=== PATIENT | female | born 1995 | race Caucasian/White ===

== ENCOUNTER 2017-08-08 20:26 | Emergency (ER) | payer OTHER ==
[2017-08-08] MEDS ORDERED: Octyl 2-Cyanoacrylate 1 Tube TOP ONE (20:57)
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
[2017-08-08] MEDS ORDERED: Diphtheria,Pertussis(Acell),Tetanus Vaccine 0.5 ML Syringe IM ONE (21:35)
[2017-08-08] MEDS ORDERED: Diphtheria,Pertussis(Acell),Tetanus Vaccine 0.5 ML Syringe ONE (21:36)
== END 2017-08-08 21:40 | disposition home or self-care (01) ==
LOC: MW.ED 20:26
DX: S01.01XA Laceration without foreign body of scalp, initial encounter (principal); Z23 Encounter for immunization; W22.8XXA Striking against or struck by other objects, initial encounter; W19.XXXA Unspecified fall, initial encounter
CPT/HCPCS: 12001; 90471; 90715; 99282; A9270